=== PATIENT | male | born 1965 | race Caucasian/White ===

== ENCOUNTER 2016-11-22 23:55 | Emergency (ER) | payer MEDICARE, OTHER ==
--- NOTE | ~2016-11-22 | CR63 ---
[facility] A Service of [facility] & [facility] / [facility] RADIOLOGY TEXT RESULTS PATIENT: DION WATSON LOCATION: CFTX : [id number] UNIT #: [id number] AGE: [address]: TED BRUSH APRN SEX: M ORDER DR: [id number] [facility] [address] [place], [place] [address] [id number] MR#: [id number] Acc #: [id number] NAME: DION WATSON. : 1965 SEX: M STUDY DATE/TIME: 11/23/2016 0:54 UNIT: [facility] ROOM: STUDY DESCRIPTION: CR Chest 2 View Attending Physician: Ted Brush Aprn Ordering Physician: Ted Brush Aprn Primary Care Physician: Willi Fuentes M.D. MEDICAL IMAGING REPORT This report is preliminary unless electronic signature is present EXAM 2 views of the chest COMPARISON August 28, 2016 and November 14, 2014. INDICATIONS 51-year-old male with dyspnea, cough, chest congestion for 2 months. Fever today. FINDINGS There is top normal heart size. No evidence of pneumothorax, pleural effusion or acute airspace disease. There is dextroscoliosis of the thoracic spine. IMPRESSION No acute radiographic abnormality. Stable top normal heart size. Dictated by... Juan Carpio M.D. THIS IS AN ELECTRONICALLY VERIFIED REPORT Juan Carpio M.D. at 11/27/2016 10:56 AM Goldie TD: 11/23/2016 08:37 JOB #: [id number] MEDICAL IMAGING REPORT COPY
[2016-11-22 23:34] LABS: INFLUENZA A POS (NEG); INFLUENZA B NEG (NEG)
[~2016-11-22 23:55] MED LIST: CELEBREX; COLACE; CRESTOR PO; IBUPROFEN; LIPITOR PO; PHENERGAN25 MG PO; VICODIN 5/500 T1 TAB
== END 2016-11-23 02:10 | disposition home or self-care (01) ==
LOC: CFTX 23:55
PROVIDERS: Nurse Practitioner Family
DX: J09.X2 Influenza due to identified novel influenza A virus with other respiratory manifestations (principal); F17.210 Nicotine dependence, cigarettes, uncomplicated; Z88.5 Allergy status to narcotic agent; Z88.8 Allergy status to other drugs, medicaments and biological substances; Z79.899 Other long term (current) drug therapy
CPT/HCPCS: 71020; 87651; 87804; 99283